=== PATIENT | female | born 1980 | race African-American/Black ===

== ENCOUNTER 2016-12-09 09:24 | Emergency (ER) | payer OTHER ==
[~2016-12-09] VITALS: Ht 165.1 cm; Wt 79.4 kg
[2016-12-09 09:30] VITALS: BP 106/74
[2016-12-09] MEDS ORDERED: LIDOCAINE 2% VISCOUS 15 ML SOLUTION. SWSW ONE (10:00)
[2016-12-09] MEDS ORDERED: LIDO15SO2 MM (10:56)
--- NOTE | 2016-12-09 10:56 | PHYS DOC ---
Adult General Chief Complaint Chief Complaint: SORE THROAT HPI HPI Patient is a 36 year old female who presents with sore throat. Patient reports 3 day history of sore throat & dry cough. Denies fevers/chills, nasal congestion, shortness of breath, vomiting. Previously healthy. Review of Systems Review of Systems Constitutional: Denies fever or chills HENT: Denies nasal congestion are reports sore throat Respiratory: Denies cough or shortness of breath Cardiovascular: Denies chest pain GI: Denies abdominal pain, nausea, vomiting Musculoskeletal: Denies back pain or joint pain Integument: Denies rash Neurologic: Denies headache Current Medications Current Medications Current Medications Medications (Trade) Dose Ordered Sig/[place] Start Time Stop Time Status Last Admin Dose Admin Lidocaine HCl 15 ml 1X ONCE 12/09/16 10:00 12/09/16 10:01 DC 12/09/16 09:57 15 ML Allergies Allergies Allergies Coded Allergies Type Severity Reaction Last Updated Verified No Known Drug Allergies 12/09/16 No Physical Exam Physical Exam Constitutional: Well developed, well nourished, no acute distress, non-toxic appearance. HENT: Normocephalic, atraumatic, bilateral external ears normal, oropharynx moist, posterior oropharynx mild erythema no tonsillar enlargement/exudate, nose normal. Eyes: conjunctiva normal, no discharge. Neck: supple, no stridor. no cervical lymphadenopathy. Cardiovascular: RRR, no murmurs Lungs & Thorax: LCTAB, no wheezing, no respiratory distress. Abdomen: soft, nontender, nondistended. Skin: Warm, dry, no erythema, no rash. Back: No tenderness. Extremities: No deformity Neurologic: Alert and oriented X 3 Current Patient Data Lab Results Laboratory Tests Test 12/09/16 09:40 Group A Streptococcus Rapid Negative (NEGATIVE) EKG EKG [] Radiology/Procedures Radiology/Procedures [] Course & Med Decision Making Course & Med Decision Making Pertinent Labs and Imaging studies reviewed. (See chart for details) Patient presents with sore throat. Rapid strep negative. She had tried over-the- counter treatments and was still having a lot of pain with swallowing. Gave Viscous Lidocaine here and will provide prescription. Recommend continue Tylenol and ibuprofen, drink fluids to stay hydrated. Follow-up with primary care physician if not improving in 2-3 days. Return to the emergency department for difficulty breathing or swallowing, any otherwise worsening condition. Discharged home in stable condition. [] Dragon Disclaimer Dragon Disclaimer This chart was dictated in whole or in part using Voice Recognition software in a busy, high-work load, and often noisy Emergency Department environment. It may contain unintended and wholly unrecognized errors or omissions. Departure Departure: Impression: Primary Impression: Pharyngitis Disposition: HOME, SELF-CARE Condition: STABLE Referrals: PCP,NO (PCP) Patient Instructions: Viral Pharyngitis Additional Instructions: You were seen in the ED today for sore throat. Strep was negative. This is caused by a virus. Please rest, take tylenol/ibuprofen for pain or fever, drink fluids to stay hydrated, follow up with primary care in 2-3 days if not improving. Come back for difficulty breathing or swallowing, otherwise worsening condition. Scripts Lidocaine HCl (Lidocaine HCl Viscous) 15 Ml Solution 15 ML MM BID Y for SORE THROAT, #90 MISC Prov: KODY VIDALES MD 12/09/16 KODY VIDALES MD Dec 09, 2016 10:56
== END 2016-12-09 12:05 | disposition home or self-care (01) ==
LOC: ER 09:24
DX: J02.9 Acute pharyngitis, unspecified (principal)
CPT/HCPCS: 87070; 87880; 99283